=== PATIENT | female | born 1955 | race Caucasian/White ===

== ENCOUNTER 2017-02-03 09:19 | Inpatient (IN) | payer MEDICAID, OTHER ==
[~2017-02-03] VITALS: Ht 167.6 cm; Wt 66.7 kg
[~2017-02-03 09:19] MED LIST: ALBU6.7H INH; AMOX-424 PO; LIDOCAINE HCL/PF 1% 2ML VIAL ONE; LISI2.5T47 PO; METHADONE PO; P20 PO; PULM50 NEB
[2017-02-03] MEDS ORDERED: METHYLPREDNISOLONE SOD SUCC 125 MG/2 ML VIAL IV STA (09:26)
[2017-02-03] MEDS ORDERED: ALBUTEROL (0.083%) 2.5MG/3ML NEB HHN STA (09:26)
[2017-02-03] MEDS ORDERED: IPRATROPIUM BROMIDE (0.02%) 0.5MG/2.5ML NEB HHN STA (09:26)
[2017-02-03] MEDS ORDERED: IPRATROPIUM BROMIDE (0.02%) 0.5MG/2.5ML NEB ONE (09:36)
[2017-02-03] MEDS ORDERED: ALBUTEROL (0.083%) 2.5MG/3ML NEB ONE (09:36)
[2017-02-03 09:51] LABS: BASOPHILS % 0.4 % (0.0-2.0); EOSINOPHILS % 0.7 % (0.0-5.0); HEMATOCRIT. 41.4 % (36.0-48.0); HEMOGLOBIN. 13.9 g/dL (12.0-16.0); LYMPHOCYTES % 12.4 % (20.0-50.0); MEAN CORPUSCULAR HEMOGLOBIN 27.1 pg (28.0-32.0); MEAN CORPUSCULAR VOLUME 80.9 fL (81.0-99.0); MONOCYTES % 4.6 % (2.0-8.0); NEUTROPHILS % 81.9 % (40.0-76.0); PLATELET 138 x1000/uL (130-400); RED BLOOD CELL COUNT 5.12 mill/uL (4.2-5.4); RED CELL DISTRIBUTION WIDTH 15.8 % (11.6-14.6)
[2017-02-03 09:58] LABS: INR 1.1; PROTHROMBIN TIME 11.9 sec (9.4-11.6)
[2017-02-03 10:07] LABS: CARBON DIOXIDE 26 mEq/L (21-32); CHLORIDE 106 mEq/L (98-107); TROPONIN I 0.03 ng/mL (0.00-0.04)
[2017-02-03] MEDS ORDERED: FUROSEMIDE 40MG/4ML VIAL IVP ONE (11:00)
[2017-02-03 11:14] LABS: BG BASE EXCESS -2.1 mmol/L (-2.0-2.0); BG CARBOXYHEMOGLOBIN 0.9 % (0.5-1.5); BG DEOXYHEMOGLOBIN 3.9 % (0.0-5.0); BG FRACTION INSPIRED OXYGEN 36; BG HCO3 ACT 21.9 mmol/L (22.0-26.0); BG METHEMOGLOBIN 0.7 % (0.0-1.5); BG OXYHEMOGLOBIN 94.5 % (94.0-97.0); BG PCO2 35.4 mmHg (35.0-45.0); BG PO2 87.7 mmHg (75.0-100.0); BG SAMPLE SITE RIGHT RADIAL; BG VENT MODE NASAL CANNULA
[2017-02-03] MEDS ORDERED: AZITHROMYCIN 500 MG in DEXT 5% WATER 250 ML IV SCH (14:45)
[2017-02-03] MEDS ORDERED: LORAZEPAM 2MG/ML CPJ IV PRN (14:45)
[2017-02-03] MEDS ORDERED: IPRATROPIUM/ALBUTEROL 0.5-3(2.5)MG/3ML NEB INH PRN (14:45)
[2017-02-03] MEDS ORDERED: CLONIDINE 0.1MG TABLET PO PRN (14:45)
[2017-02-03] MEDS ORDERED: ACETAMINOPHEN 325MG TABLET PO PRN (14:45)
[2017-02-03] MEDS ORDERED: MORPHINE SULFATE 2 MG/ML CPJ (NOT FOR IM USE) IV PRN (14:45)
[2017-02-03] MEDS ORDERED: FUROSEMIDE 40MG/4ML VIAL IV SCH (14:45)
[2017-02-03 15:12] VITALS: BP 116/62
[2017-02-03] MEDS ORDERED: ASPIRIN 81MG EC TABLET PO NR (16:00)
[2017-02-03 16:15] LABS: BG BASE EXCESS 2.6 mmol/L (-2.0-2.0); BG CARBOXYHEMOGLOBIN 1.2 % (0.5-1.5); BG DEOXYHEMOGLOBIN 4.1 % (0.0-5.0); BG FRACTION INSPIRED OXYGEN 21; BG HCO3 ACT 24.9 mmol/L (22.0-26.0); BG METHEMOGLOBIN 0.1 % (0.0-1.5); BG OXYGEN SATURATION 95.8 % (92.0-98.5); BG OXYHEMOGLOBIN 94.6 % (94.0-97.0); BG PH 7.509 (7.350-7.450); BG PO2 74.8 mmHg (75.0-100.0); BG SAMPLE SITE RIGHT BRACHIAL; BG TOTAL HEMOGLOBIN 14.8 g/dL (12.0-18.0); BG VENT MODE ROOM AIR
[2017-02-03] MEDS ORDERED: KCL 20MEQ/100ML PREMIX 100 ML IV NR (16:30)
[2017-02-03 17:14] VITALS: BP 145/79
[2017-02-03] MEDS: POTASSIUM CHLORIDE 20MEQ TABLET SR PO SCH (17:24)
[2017-02-03] MEDS: METHYLPREDNISOLONE SOD SUCC 40 MG/ML VIAL IV SCH ×2 (17:24→21:13)
[2017-02-03] MEDS: DILTIAZEM HCL 60MG TABLET PO SCH ×3 (17:24→21:20)
[2017-02-03] MEDS: LISINOPRIL 2.5MG TABLET PO SCH (17:24)
[2017-02-03] MEDS: ENOXAPARIN 40MG/0.4ML SYR SUBCUT SCH (17:26)
[2017-02-03] MEDS ORDERED: MVI, ADULT NO.1 10 ML, FOLIC ACID 1 MG, THIAMINE HCL 100 MG in SODIUM CHLORIDE 0.9% 1,0... IV NR ×4 (17:30)
[2017-02-03 17:35] LABS: CLARITY URINE CLEAR (CLEAR); COLOR URINE YELLOW (YELLOW); GLUCOSE URINE NEGATIVE (NEGATIVE); KETONES URINE NEGATIVE (NEGATIVE); LEUKOCYTE ESTERASE URINE NEGATIVE (NEGATIVE); NITRITE URINE NEGATIVE (NEGATIVE); OCCULT BLOOD URINE TRACE (NEGATIVE); PROTEIN URINE NEGATIVE (NEGATIVE); UROBILINOGEN URINE 0.2 E.U./dL (0.2-1.0)
[2017-02-03 17:55] LABS: *AMPHETAMINES SCREEN URINE NEGATIVE (NEGATIVE); *BARBITURATES SCREEN URINE NEGATIVE (NEGATIVE); *BENZODIAZEPINES SCREEN URINE NEGATIVE (NEGATIVE); *COCAINE SCREEN URINE PRESUMTIVE POSITIVE (NEGATIVE); CANNABINOID URINE SCREEN NEGATIVE (NEGATIVE); OPIATES URINE SCREEN PRESUMTIVE POSITIVE (NEGATIVE); PHENCYCLIDINE URINE SCREEN NEGATIVE (NEGATIVE)
[2017-02-03 17:58] LABS: METHADONE URINE SCREEN PRESUMTIVE POSITIVE (NEGATIVE)
[2017-02-03 17:59] LABS: AMMONIA 44 uMol/L (<32)
[2017-02-03] MEDS: AZITHROMYCIN 500 MG in DEXT 5% WATER 250 ML IV SCH (18:09)
[2017-02-03 18:50] VITALS: BP 116/62
[2017-02-03] MEDS: ONDANSETRON HCL 4MG/2ML VIAL IV PRN (19:22)
[2017-02-03 20:00] VITALS: BP 128/83
[2017-02-03] MEDS: FUROSEMIDE 40MG/4ML VIAL IVP SCH (21:13)
[2017-02-03] MEDS: LACTULOSE 20G/30ML UDC PO SCH ×2 (21:13→21:20)
[2017-02-03 21:23] VITALS: BP 117/73
[2017-02-04] VITALS: BP 135/86
[2017-02-04] MEDS: ONDANSETRON HCL 4MG/2ML VIAL IV PRN (00:44)
[2017-02-04] MEDS: IPRATROPIUM/ALBUTEROL 0.5-3(2.5)MG/3ML NEB INH SCH ×6 (01:29→20:47)
[2017-02-04] MEDS: BUDESONIDE 0.5MG/2ML NEB INH SCH ×3 (01:29→20:47)
[2017-02-04 04:00] VITALS: BP 141/93
[2017-02-04] MEDS: LACTULOSE 20G/30ML UDC PO SCH ×4 (06:00→21:45)
[2017-02-04] MEDS: METHYLPREDNISOLONE SOD SUCC 40 MG/ML VIAL IV SCH ×3 (06:52→21:32)
[2017-02-04] MEDS: DILTIAZEM HCL 60MG TABLET PO SCH ×3 (06:53→21:32)
[2017-02-04 07:40] LABS: BG BASE EXCESS 1.9 mmol/L (-2.0-2.0); BG CARBOXYHEMOGLOBIN 1.4 % (0.5-1.5); BG DEOXYHEMOGLOBIN 6.9 % (0.0-5.0); BG HCO3 ACT 25.9 mmol/L (22.0-26.0); BG METHEMOGLOBIN 0.1 % (0.0-1.5); BG OXYHEMOGLOBIN 91.6 % (94.0-97.0); BG PCO2 38.6 mmHg (35.0-45.0); BG PH 7.444 (7.350-7.450); BG SAMPLE SITE RIGHT RADIAL; BG TOTAL HEMOGLOBIN 15.2 g/dL (12.0-18.0); BG VENT MODE ROOM AIR
[2017-02-04 08:11] VITALS: BP 137/91
[2017-02-04 09:02] LABS: HEMATOCRIT. 48.4 % (36.0-48.0); HEMOGLOBIN. 15.7 g/dL (12.0-16.0); MEAN CORPUSCULAR VOLUME 83.2 fL (81.0-99.0); MEAN PLATELET VOLUME 8.9 fl (7.4-10.4); PLATELET 167 x1000/uL (130-400); RED BLOOD CELL COUNT 5.82 mill/uL (4.2-5.4); RED CELL DISTRIBUTION WIDTH 15.9 % (11.6-14.6)
[2017-02-04] MEDS: POTASSIUM CHLORIDE 20MEQ TABLET SR PO SCH ×2 (09:21→18:12)
[2017-02-04] MEDS: LISINOPRIL 2.5MG TABLET PO SCH (09:21)
[2017-02-04] MEDS: FUROSEMIDE 40MG/4ML VIAL IVP SCH ×2 (09:22→18:11)
[2017-02-04] MEDS: ASPIRIN 81MG EC TABLET PO SCH (09:22)
[2017-02-04] MEDS: DOCUSATE SODIUM 100MG CAPSULE PO PRN ×2 (09:22→18:11)
[2017-02-04 12:00] VITALS: BP 105/58
[2017-02-04 12:04] LABS: CARBON DIOXIDE 28 mEq/L (21-32); CHLORIDE 101 mEq/L (98-107); HDL CHOLESTEROL 55 mg/dL (40-59); LDL CHOLESTEROL 85 mg/dL (5-100); TROPONIN I 0.04 ng/mL (0.00-0.04)
[2017-02-04 16:00] VITALS: BP 125/77
[2017-02-04 16:16] LABS: PLATELET ESTIMATE NORMAL
[2017-02-04] MEDS: AZITHROMYCIN 500 MG in DEXT 5% WATER 250 ML IV SCH (18:11)
[2017-02-04 20:00] VITALS: BP 127/78
[2017-02-04] MEDS: ENOXAPARIN 40MG/0.4ML SYR SUBCUT SCH (22:07)
[2017-02-05] VITALS: BP 97/48
[2017-02-05] MEDS: IPRATROPIUM/ALBUTEROL 0.5-3(2.5)MG/3ML NEB INH SCH ×5 (00:40→16:00)
[2017-02-05 04:00] VITALS: BP 91/42
[2017-02-05] MEDS: LACTULOSE 20G/30ML UDC PO SCH ×2 (05:59→14:00)
[2017-02-05] MEDS: DILTIAZEM HCL 60MG TABLET PO SCH ×2 (05:59→13:54)
[2017-02-05] MEDS: METHYLPREDNISOLONE SOD SUCC 40 MG/ML VIAL IV SCH (06:02)
[2017-02-05 08:00] VITALS: BP 106/49
[2017-02-05] MEDS: BUDESONIDE 0.5MG/2ML NEB INH SCH (08:06)
[2017-02-05] MEDS: LISINOPRIL 2.5MG TABLET PO SCH (09:00)
[2017-02-05] MEDS ORDERED: METHADONE HCL 10MG TABLET PO SCH (09:15)
[2017-02-05 09:42] LABS: HEMATOCRIT. 45.4 % (36.0-48.0); HEMOGLOBIN. 14.9 g/dL (12.0-16.0); MEAN CORPUSCULAR HEMOGLOBIN 26.7 pg (28.0-32.0); MEAN CORPUSCULAR VOLUME 81.2 fL (81.0-99.0); PLATELET 76 x1000/uL (130-400); RED BLOOD CELL COUNT 5.59 mill/uL (4.2-5.4); RED CELL DISTRIBUTION WIDTH 16.7 % (11.6-14.6)
[2017-02-05] MEDS: ASPIRIN 81MG EC TABLET PO SCH (10:13)
[2017-02-05] MEDS: POTASSIUM CHLORIDE 20MEQ TABLET SR PO SCH (10:14)
[2017-02-05] MEDS: FUROSEMIDE 40MG/4ML VIAL IVP SCH (10:14)
[2017-02-05] MEDS ORDERED: MORPHINE SULFATE 4 MG/ML CPJ (NOT FOR IM USE) IV PRN (10:45)
[2017-02-05 12:00] VITALS: BP 91/54
[2017-02-05 20:18] LABS: PLATELET ESTIMATE DECREASED
[2017-02-06] MEDS ORDERED: PREDNISONE 20MG TABLET PO SCH (09:00)
== END 2017-02-05 17:00 | disposition left against medical advice (07) | DRG 140 ==
LOC: ER 09:26 → 7WST 11:01 → ENRESERV 13:41
PROVIDERS: ADMIT Internal Medicine; ATTEND Internal Medicine
DX: J44.1 Chronic obstructive pulmonary disease with (acute) exacerbation (principal); J96.00 Acute respiratory failure, unspecified whether with hypoxia or hypercapnia; I50.23 Acute on chronic systolic (congestive) heart failure; N17.9 Acute kidney failure, unspecified; I42.9 Cardiomyopathy, unspecified; I08.1 Rheumatic disorders of both mitral and tricuspid valves; D69.6 Thrombocytopenia, unspecified; I11.0 Hypertensive heart disease with heart failure; K74.60 Unspecified cirrhosis of liver; I44.7 Left bundle-branch block, unspecified; E87.6 Hypokalemia; F14.10 Cocaine abuse, uncomplicated; F11.10 Opioid abuse, uncomplicated; B19.20 Unspecified viral hepatitis C without hepatic coma; D72.829 Elevated white blood cell count, unspecified; Z53.21 Procedure and treatment not carried out due to patient leaving prior to being seen by health care provider; F17.200 Nicotine dependence, unspecified, uncomplicated; T38.0X5A Adverse effect of glucocorticoids and synthetic analogues, initial encounter; Z79.82 Long term (current) use of aspirin; Z86.73 Personal history of transient ischemic attack (TIA), and cerebral infarction without residual deficits; Z79.51 Long term (current) use of inhaled steroids; Z79.899 Other long term (current) drug therapy
CPT/HCPCS: 36415; 36600; 70450; 71010; 80048; 80053; 80061; 80305; 81001; 82140; 82375; 82805; 83735; 83880; 84443; 84484; 85025; 85610; 87040; 93005; 93970; 94620; 94640; 94664; 96374; 96375; 99285; J0456; J1650; J1940; J2270; J2405; J2920; J2930; J3411; J3480; J3490; J7030; J7050; J7060; J7611; J7620; J7626